=== PATIENT | male | born 1995 | race Caucasian/White ===

== ENCOUNTER 2025-10-11 00:04 | Emergency (ER) | payer OTHER ==
[~2025-10-11] VITALS: Ht 172.7 cm; Wt 65.9 kg
[2025-10-11 00:44] LABS: PLATELET COUNT (AUTO) 345 K/uL (150-450); RED BLOOD CELL COUNT(AUTO) 4.83 MIL/uL (4.50-5.90); RED CELL DISTRIBUTION WIDTH 14.2 % (11.5-14.5); WHITE BLOOD COUNT (AUTO) 13.8 K/uL (4.5-11.0)
[2025-10-11 00:52] LABS: CALCIUM, TOTAL 8.8 mg/dL (8.8-10.5); CREATININE 0.84 mg/dL (0.60-1.30); GLOMERULAR FILTR. RATE CALC > 60 mL/min (>60); GLUCOSE,RANDOM 90 mg/dL (70-110); SODIUM SERUM 139 mmol/L (136-145); UREA NITROGEN, BLOOD 7 mg/dL (7-18)
[2025-10-11 01:00] LABS: LACTIC ACID 1.6 mmol/L (0.4-2.0)
[2025-10-11 01:45] VITALS: BP 110/69; PULSE 84; RESP 18; TEMP 98.3; O2SAT 100
[2025-10-11] MEDS ORDERED: SULF1TAB42 PO (02:03)
[2025-10-11] MEDS ORDERED: CEPH-558 PO (02:03)
[2025-10-11] MEDS: SULFAMETHOX/TRIMETH DS 800-160 MG/TABLET PO ONE (02:12)
[2025-10-11] MEDS: CefTRIAXone SODIUM 1 GM/VIAL IM ONE (02:12)
[2025-10-11] MEDS: LIDOCAINE/PF 1% 2 ML VIAL IM ONE (02:12)
[2025-10-11] MEDS: IBUPROFEN 600 MG TABLET PO ONE (03:14)
== END 2025-10-11 03:05 | disposition home or self-care (01) ==
LOC: EMS 00:04
DX: L02.413 Cutaneous abscess of right upper limb (principal); L03.113 Cellulitis of right upper limb; F17.210 Nicotine dependence, cigarettes, uncomplicated; F15.90 Other stimulant use, unspecified, uncomplicated; F12.90 Cannabis use, unspecified, uncomplicated
CPT/HCPCS: 99283; 80048; 87205; 83605; 85025; 87040; 36415; 87186; 96372; 87070; J0696; J3490

== ENCOUNTER 2025-10-13 20:15 | Emergency (ER) | payer OTHER ==
[~2025-10-13] VITALS: Ht 172.7 cm; Wt 68.2 kg
[~2025-10-13 20:15] MED LIST: CEPH-558 PO; SULF1TAB42 PO
[2025-10-13 20:17] VITALS: TEMP 98.2
[2025-10-13 21:02] LABS: PLATELET COUNT (AUTO) 414 K/uL (150-450); RED BLOOD CELL COUNT(AUTO) 4.92 MIL/uL (4.50-5.90); RED CELL DISTRIBUTION WIDTH 14.2 % (11.5-14.5); WHITE BLOOD COUNT (AUTO) 7.7 K/uL (4.5-11.0)
[2025-10-13 21:10] LABS: CALCIUM, TOTAL 8.8 mg/dL (8.8-10.5); CREATININE 0.81 mg/dL (0.60-1.30); GLOMERULAR FILTR. RATE CALC > 60 mL/min (>60); GLUCOSE,RANDOM 94 mg/dL (70-110); SODIUM SERUM 138 mmol/L (136-145); UREA NITROGEN, BLOOD 11 mg/dL (7-18)
[2025-10-13 21:20] LABS: LACTIC ACID 1.0 mmol/L (0.4-2.0)
[2025-10-13] MEDS: LIDOCAINE 1% 10 ML VIAL SQ ONE (22:49)
[2025-10-14 01:59] VITALS: BP 117/61; PULSE 74; RESP 16; O2SAT 98
== END 2025-10-14 02:00 | disposition home or self-care (01) ==
LOC: EMS 20:29
DX: L03.113 Cellulitis of right upper limb (principal); L02.413 Cutaneous abscess of right upper limb; F17.210 Nicotine dependence, cigarettes, uncomplicated; F12.90 Cannabis use, unspecified, uncomplicated; F15.90 Other stimulant use, unspecified, uncomplicated; Z79.899 Other long term (current) drug therapy
CPT/HCPCS: 99283; 10060; 80048; 83605; 85025; 36415; J3490